=== PATIENT | female | born 1985 | race Caucasian/White ===

== ENCOUNTER 2019-08-17 03:58 | Emergency (ER) | payer MEDICARE ==
[2019-08-17 04:27] LABS: Basophils % 0.3 % (0-1.3); Lymphocytes % 43.8 % (15.3-44.8); MPV 9.5 fL (7.6-11.3); RBC Red Blood Cell Count 3.88 M/uL (3.86-4.86)
[2019-08-17 04:29] LABS: Protime INR 0.95
[2019-08-17] MEDS ORDERED: NA CHLORIDE 0.9% 1,000 ML ONE (04:34)
[2019-08-17 04:47] LABS: ALT/SGPT 32 U/L (12-78); AST/SGOT 40 U/L (15-37); Albumin 3.2 g/dL (3.4-5.0); Alkaline Phosphatase 86 U/L (45-117); BUN Blood Urea Nitrogen 16 mg/dL (7-18); Bicarbonate 28 mmol/L (21-32); Bilirubin Direct 0.1 mg/dL (0-0.2); Bilirubin Total 0.3 mg/dL (0.2-1.0); Glucose Level 157 mg/dL (74-106); Magnesium 1.7 mg/dL (1.8-2.4); NT PRO-BNP 176 pg/mL (<125); Potassium 4.2 mmol/L (3.5-5.1); Protein, Total 6.8 g/dL (6.4-8.2); Sodium Level 138 mmol/L (136-145); Troponin (Emerg Dept Use Only) < 0.02 ng/mL (0.0-0.045)
[2019-08-17] MEDS ORDERED: D50W 25 GM/50 ML SYRINGE IV ONE (04:49)
[2019-08-17] MEDS ORDERED: HYDROCORTISONE SUC 100 MG INJ ONE (04:49)
[2019-08-17] MEDS ORDERED: NA CHLORIDE 0.9% 500 ML ONE (04:49)
[2019-08-17] MEDS ORDERED: CEFTRIAXONE/SWI 1gm 1 GM/10 ML SYR ONE (04:50)
--- NOTE | 2019-08-17 05:04 | ER ---
Nurse's Notes [facility] Name: Ping Souza Age: 34 yrs Sex: Female : 1985 Arrival Date: 08/17/2019 Time: 04:08 Bed 3 Private MD: Diagnosis: Hypothyroidism, unspecified;Type 1 diabetes mellitus;Addisonian crisis;Hypomagnesemia;Hypoglycemia, unspecified Presentation: 08/17 04:09 Presenting complaint: EMS states: called EMS Pt was lethargic, BS on scene was 17, 1 mg of Glucagon was given IM, BS went up to 29. Pt with Hx of DM with Insulin Pump, Addisons and Thyroid Disease. Transition of care: patient was not received from another setting of care. Onset of symptoms was August 17, 2019. Risk Assessment: Do you want to hurt yourself or someone else? Patient reports no desire to harm self or others. Initial Sepsis Screen: Does the patient meet any 2 criteria? No. Patient's initial sepsis screen is negative. Does the patient have a suspected source of infection? No. Patient's initial sepsis screen is negative. Care prior to arrival: Medication(s) given: Glucagon, Glucose check: 29. 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 - Social history:: Smoking status: unknown. - Ebola Screening: : Patient negative for fever greater than or equal to 101.5 degrees Fahrenheit, and additional compatible Ebola Virus Disease symptoms Patient denies exposure to infectious person. - Family history:: not pertinent. - Hospitalizations: : No recent hospitalization is reported. Screenin:13 Abuse screen: Denies threats or abuse. Denies injuries from another. Nutritional screening: No deficits noted. Tuberculosis screening: No symptoms or risk factors identified. Fall Risk None identified. Assessment: 04:22 General: Appears in no apparent distress. Behavior is drowsy. Pain: Denies pain. Neuro: wh Level of Consciousness is lethargic. Cardiovascular: Heart tones S1 S2. Respiratory: Airway is patent Respiratory effort is even, unlabored, Respiratory pattern is regular, symmetrical, Breath sounds are clear bilaterally. GI: Abdomen is flat, non-distended, Insulin Pump noted on LLQ Abd is soft and non tender X 4 quads. : No signs and/or symptoms were reported regarding the genitourinary system. EENT: No signs and/or symptoms were reported regarding the EENT system. Derm: Skin is intact, is healthy with good turgor, Skin is pink, warm \T\ dry. normal. Musculoskeletal: Circulation, motion, and sensation intact. 05:07 Reassessment: Pt refused blood culture draw. ea 05:35 Reassessment: Patient appears in no apparent distress at this time. Patient and/or wh family updated on plan of care and expected duration. Pain level reassessed. Patient is alert, oriented x 3, equal unlabored respirations, skin warm/dry/pink. PT much more alert and responsive, can answer back questions. Vital Signs: 04:13 BP 125 / 79; Pulse 58; Resp 18; Temp 96.8; Pulse Ox 100% on R/A; wh 04:28 BP 125 / 79; Pulse 55; Resp 18; Pulse Ox 100% ; ea 05:36 BP 129 / 73; Pulse 50; Resp 18; Pulse Ox 100% on R/A; ED Course: 04:08 Patient arrived in ED. 04:09 Angel Rodriguez MD is Attending Physician. marli 04:10 Accessed Port-a-Cath. using accessed w/ # 20 Macias needle, Clean \T\ dry. Dressing ea intact. Good blood return. Flushes easily. 04:11 Triage completed. wh 04:13 Arm band placed on right wrist. wh 04:13 Patient has correct armband on for positive identification. Placed in gown. Bed in low wh position. Call light in reach. Side rails up X 1. front desk monitor on. Pulse ox on. NIBP on. 04:23 Sharri Akins is Primary Nurse. wh 04:27 XRAY Chest (1 view) In Process Unspecified. EDMS 05:03 Camille Cai MD is Hospitalizing Provider. [facility] 06:36 No provider procedures requiring assistance completed. IV discontinued, intact, bleeding controlled, No redness/swelling at site. Administered Medications: 04:35 Drug: NS 0.9% 1000 ml Route: IV; Rate: 125 ml/hr; Site: Port-a-cath; 05:34 Follow up: Response: No adverse reaction 05:34 Follow up: IV Status: Completed infusion 04:45 Drug: Solu-CORTEF 100 mg Route: IVP; Site: Port-a-cath; 05:34 Follow up: Response: No adverse reaction 04:50 Drug: NS 0.9% 500 ml Route: IV; Rate: bolus; Site: Port-a-cath; 05:34 Follow up: Response: No adverse reaction; IV Status: Completed infusion 04:54 Drug: Rocephin 1 grams Route: IV; Rate: per protocol; Site: Port-a-cath; 05:34 Follow up: Response: No adverse reaction; IV Status: Completed infusion 04:56 Drug: D50W 25 ml Route: IVP; Site: Port-a-cath; 05:34 Follow up: Response: No adverse reaction 05:33 Drug: Magnesium Sulfate 1 grams Route: IVPB; Infused Over: 1 hrs; Site: Port-a-cath; 06:34 Follow up: Response: No adverse reaction; IV Status: Completed infusion 06:34 Not Given (Patient Refused): Synthroid 150 mcg PO once Point of Care Testing: Blood Glucose: 04:15 Blood Glucose: 72 mg/dL; 05:05 Blood Glucose: 243 mg/dL; Ranges: Outcome: 05:04 Decision to Hospitalize by Provider. [facility] 06:37 AMA AMA form signed 06:37 Condition: stable 06:37 Instructed on follow up and referral plans. 06:38 Patient left the ED. Signatures: Dispatcher [employer] Angel Chaparro MD MD cha Antunez, Elena, RN RN ea Habalo, Winsy Corrections: (The following items were deleted from the chart) 04:22 04:13 Home Meds: Unable to obtain; [facility]
--- NOTE | 2019-08-17 05:05 | EDPHYS ---
Physician Documentation [facility] Name: Ping Souza Age: 34 yrs Sex: Female : 1985 Arrival Date: 08/17/2019 Time: 04:08 Bed 3 Private MD: ED Physician Angel Rodriguez HPI: 08/17 04:59 This 34 yrs old Female presents to ER via EMS with complaints of Low Blood marli Sugar. 04:59 The patient or guardian reports hypoglycemia. Onset: The symptoms/episode marli began/occurred just prior to arrival, this morning. Associated signs and symptoms: Pertinent positives: anorexia. Current symptoms: In the emergency department the patient's symptoms are unchanged from the initial presentation, despite EMS interventions. The patient has experienced similar episodes in the past, several times. 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 - Social history:: Smoking status: unknown. - Ebola Screening: : Patient negative for fever greater than or equal to 101.5 degrees Fahrenheit, and additional compatible Ebola Virus Disease symptoms Patient denies exposure to infectious person. - Family history:: not pertinent. - Hospitalizations: : No recent hospitalization is reported. ROS: 04:59 Constitutional: Negative for fever, chills, and weight loss, Eyes: Negative for injury, marli pain, redness, and discharge, ENT: Negative for injury, pain, and discharge, Neck: Negative for injury, pain, and swelling, Cardiovascular: Negative for chest pain, palpitations, and edema, Respiratory: Negative for shortness of breath, cough, wheezing, and pleuritic chest pain, Abdomen/GI: Negative for abdominal pain, nausea, vomiting, diarrhea, and constipation, Back: Negative for injury and pain, : Negative for injury, bleeding, discharge, and swelling, MS/Extremity: Negative for injury and deformity, Skin: Negative for injury, rash, and discoloration, Psych: Negative for depression, anxiety, suicide ideation, homicidal ideation, and hallucinations, Allergy/Immunology: Negative for hives, rash, and allergies, Endocrine: Negative for neck swelling, polydipsia, polyuria, polyphagia, and marked weight changes, Hematologic/Lymphatic: Negative for swollen nodes, abnormal bleeding, and unusual bruising. 04:59 Neuro: Positive for altered mental status, weakness. Exam: 04:59 Constitutional: This is a well developed, well nourished patient who is awake, alert, marli and in no acute distress. Head/Face: Normocephalic, atraumatic. Eyes: Pupils equal round and reactive to light, extra-ocular motions intact. Lids and lashes normal. Conjunctiva and sclera are non-icteric and not injected. Cornea within normal limits. Periorbital areas with no swelling, redness, or edema. ENT: Nares patent. No nasal discharge, no septal abnormalities noted. Tympanic membranes are normal and external auditory canals are clear. Oropharynx with no redness, swelling, or masses, exudates, or evidence of obstruction, uvula midline. Mucous membranes moist. Neck: Trachea midline, no thyromegaly or masses palpated, and no cervical lymphadenopathy. Supple, full range of motion without nuchal rigidity, or vertebral point tenderness. No Meningismus. Chest/axilla: Normal chest wall appearance and motion. Nontender with no deformity. No lesions are appreciated. Cardiovascular: Regular rate and rhythm with a normal S1 and S2. No gallops, murmurs, or rubs. Normal PMI, no JVD. No pulse deficits. Respiratory: Lungs have equal breath sounds bilaterally, clear to auscultation and percussion. No rales, rhonchi or wheezes noted. No increased work of breathing, no retractions or nasal flaring. Abdomen/GI: Soft, non-tender, with normal bowel sounds. No distension or tympany. No guarding or rebound. No evidence of tenderness throughout. Back: No spinal tenderness. No costovertebral tenderness. Full range of motion. Female : Normal external genitalia. Skin: Warm, dry with normal turgor. Normal color with no rashes, no lesions, and no evidence of cellulitis. MS/ Extremity: Pulses equal, no cyanosis. Neurovascular intact. Full, normal range of motion. Neuro: Awake and alert, GCS 15, oriented to person, place, time, and situation. Cranial nerves II-XII grossly intact. Motor strength 5/5 in all extremities. Sensory grossly intact. Cerebellar exam normal. Normal gait. Psych: Awake, alert, with orientation to person, place and time. Behavior, mood, and affect are within normal limits. Vital Signs: 04:13 BP 125 / 79; Pulse 58; Resp 18; Temp 96.8; Pulse Ox 100% on R/A; 04:28 BP 125 / 79; Pulse 55; Resp 18; Pulse Ox 100% ; ea 05:36 BP 129 / 73; Pulse 50; Resp 18; Pulse Ox 100% on R/A; MDM: 04:10 Patient medically screened. [facility] 05:02 Data reviewed: vital signs, nurses notes, lab test result(s), EKG, radiologic studies, marli plain films. 08/17 04:10 Order name: Basic Metabolic Panel; Complete Time: 06:04 [facility] 08/17 04:10 Order name: CBC with Diff; Complete Time: 05:28 [facility] 08/17 04:10 Order name: LFT's; Complete Time: 06:04 [facility] 08/17 04:10 Order name: Magnesium; Complete Time: 06:04 [facility] 08/17 04:10 Order name: NT PRO-BNP; Complete Time: 06:04 [facility] 08/17 04:10 Order name: PT-INR; Complete Time: 05:28 [facility] 08/17 04:10 Order name: Troponin (emerg Dept Use Only); Complete Time: 06:04 [facility] 08/17 04:18 Order name: FSBG - FOR PT WITH NO ID mo 08/17 04:44 Order name: Procalcitonin; Complete Time: 06:04 [facility] 08/17 04:51 Order name: Thyroid Stimulating Hormone; Complete Time: 06:04 [facility] 08/17 05:39 Order name: T4 Free; Complete Time: 06:04 [facility] 08/17 04:10 Order name: XRAY Chest (1 view) [facility] 08/17 04:10 Order name: EKG; Complete Time: 04:11 [facility] 08/17 04:10 Order name: Cardiac monitoring; Complete Time: 04:24 [facility] 08/17 04:10 Order name: EKG - Nurse/Tech; Complete Time: 04:24 [facility] 08/17 04:10 Order name: IV Saline Lock; Complete Time: 04:13 [facility] 08/17 04:10 Order name: Labs collected and sent; Complete Time: 04: [facility] 08/17 04:10 Order name: O2 Per Protocol; Complete Time: 04: [facility] 08/17 04:10 Order name: O2 Sat Monitoring; Complete Time: 04: [facility] 08/17 05:29 Order name: Diet Regular; Complete Time: 05:30 [facility] Administered Medications: 04:35 Drug: NS 0.9% 1000 ml Route: IV; Rate: 125 ml/hr; Site: Port-a-[facility]; 05:34 Follow up: Response: No adverse reaction 05:34 Follow up: IV Status: Completed infusion 04:45 Drug: Solu-CORTEF 100 mg Route: IVP; Site: Port-a-[facility]; 05:34 Follow up: Response: No adverse reaction 04:50 Drug: NS 0.9% 500 ml Route: IV; Rate: bolus; Site: Port-a-[facility]; 05:34 Follow up: Response: No adverse reaction; IV Status: Completed infusion 04:54 Drug: Rocephin 1 grams Route: IV; Rate: per protocol; Site: Port-a-[facility]; 05:34 Follow up: Response: No adverse reaction; IV Status: Completed infusion 04:56 Drug: D50W 25 ml Route: IVP; Site: Port-a-[facility]; 05:34 Follow up: Response: No adverse reaction 05:33 Drug: Magnesium Sulfate 1 grams Route: IVPB; Infused Over: 1 hrs; Site: Port-a-[facility]; 06:34 Follow up: Response: No adverse reaction; IV Status: Completed infusion 06:34 Not Given (Patient Refused): Synthroid 150 mcg PO once Point of Care Testing: Blood Glucose: 04:15 Blood Glucose: 72 mg/dL; 05:05 Blood Glucose: 243 mg/dL; Ranges: Critical Glucose Levels:Adult <50 mg/dl or >400 mg/dl <40 mg/dl or >180 mg/dl Disposition: 08/17/19 06:12 Patient has left against medical advice. Impression: Hypothyroidism, unspecified, Type 1 diabetes mellitus, Addisonian crisis, Hypomagnesemia, Hypoglycemia, unspecified. - Patients states they are going to Home. - Condition is Fair. - Discharge Instructions: Hypoglycemia, Hypomagnesemia, Hypothyroidism, Blood Glucose Monitoring, Adult, Hypoglycemia, [id number]. Follow up: Private Physician; When: Today; Reason: Recheck today's complaints, Continuance of care, Re-evaluation by your physician. - Problem is new. - Symptoms have improved. Signatures: Dispatcher [employer] EDMS Angel Rodriguez MD MD cha Sharri Akins Corrections: (The following items were deleted from the chart) 04:22 04:13 Home Meds: Unable to obtain; [facility] 04:50 04:44 THYROID STIMULAT HORMONE+C.LAB.BRZ ordered. EDOR EDMS 06:10 05:04 Hospitalization Ordered by Camille Cai MD for Inpatient Admission. Preliminary [facility] diagnosis is Hypoglycemia, unspecified; Altered mental status, unspecified; Weakness; Addisonian crisis. Bed requested for Telemetry/MedSurg (Inpatient). Status is Inpatient Admission. Condition is Stable. Problem is new. Symptoms have improved. UTI on Admission? No. marli 06:38 06:12 08/17/2019 06:12 Patients has left against medical advice. Impression: Hypothyroidism, unspecified; Type 1 diabetes mellitus; Addisonian crisis; Hypomagnesemia; Hypoglycemia, unspecified. Patient states they are going to Home. Condition is Fair. Follow up: Private Physician; When: Today; Reason: Recheck today's complaints, Continuance of care, Re-evaluation by your physician. Problem is new. Symptoms have improved. marli
[2019-08-17] MEDS ORDERED: MAGNESIUM SULFATE 1 gm IVPB 1 GM/100 ML BAG IV ONE (05:29)
[2019-08-17] MEDS ORDERED: HEPARIN 500 UNIT/5 ML SYR IV ONE (06:29)
[2019-08-17 06:42] VITALS: TEMP 96.8; O2SAT 100
[2019-08-17 06:44] VITALS: BP 129/73
--- NOTE | 2019-08-17 08:41 | RAD REPORT ---
EXAM DESCRIPTION: RAD - Chest Single View - 08/17/2019 4:28 am CLINICAL HISTORY: Cough COMPARISON: None. TECHNIQUE: AP portable chest image was obtained 0421 hours . FINDINGS: Lungs are clear. Heart and vasculature are normal. No measurable pleural effusion and no p neumothorax. No acute bony abnormality seen. No acute aortic findings suspected. IMPRESSION: No acute cardiopulmonary process.
--- NOTE | 2019-08-17 12:10 | EKG ---
Test Date: 2019-08-17 Test Time: 04:22:35 Promotional Advertising Assistant: BRANDON MEASUREMENT RESULTS: Intervals: Rate: 51 OH: 154 QRSD: 76 QT: 430 QTc: 396 Phillips: P: 54 OH: 154 QRS: 70 T: 63 INTERPRETIVE STATEMENTS: Sinus bradycardia Low voltage QRS Cannot rule out Anterior infarct, age undetermined Abnormal ECG No previous ECG available for comparison Electronically Signed On 08-17-19 12:08:55 CDT by Ashok Pak
== END 2019-08-17 06:38 | disposition left against medical advice (07) ==
LOC: ER 03:58
DX: E11.649 Type 2 diabetes mellitus with hypoglycemia without coma (principal); E27.2 Addisonian crisis; E03.9 Hypothyroidism, unspecified; E83.42 Hypomagnesemia; Z79.4 Long term (current) use of insulin; Z91.048 Other nonmedicinal substance allergy status
CPT/HCPCS: 96365; 96368; 93005; 85025; 80048; 36415; 83735; 85610; 82947 ×2; 80076; 84443; 84484; 84439; 84145; 83880; 71045; 96375; 99285; J3475; J1642; J0696; J7040; J7030; J1720